=== PATIENT | female | born 1985 | race Caucasian/White ===

== ENCOUNTER 2017-01-10 19:45 | Emergency (ER) | payer MEDICAID ==
[~2017-01-10] VITALS: Ht 165.1 cm; Wt 68.0 kg
[2017-01-10 20:23] VITALS: BP 116/75
[2017-01-10] MEDS ORDERED: IBUPROFEN 600 MG TAB PO ONE (22:15)
== END 2017-01-10 22:23 | disposition home or self-care (01) ==
LOC: ER 19:45
DX: S92.525A Nondisplaced fracture of middle phalanx of left lesser toe(s), initial encounter for closed fracture (principal); B35.4 Tinea corporis; X58.XXXA Exposure to other specified factors, initial encounter; Y93.02 Activity, running; Y99.8 Other external cause status; Y92.89 Other specified places as the place of occurrence of the external cause
CPT/HCPCS: 73630; 99284; L3260